=== PATIENT | male | born 1985 | race Caucasian/White ===

== ENCOUNTER 2018-07-05 16:19 | Emergency (ER) | payer MEDICAID ==
[~2018-07-05] VITALS: Ht 175.3 cm; Wt 84.1 kg
[~2018-07-05 16:19] MED LIST: CEPH500C5 PO; CLIN300C85 PO; DEXA4TAB68 PO; EPIN0.3P8 SQ; IBUP-1986 PO; OXYC-658 PO
[2018-07-05 16:38] VITALS: BP 133/82
[2018-07-05] MEDS ORDERED: LIDOcaine 1.5% w/epinephrine 1:200,000 5ml ampul IJ ONE (17:25)
[2018-07-05] MEDS ORDERED: TETanus/Pertussis (Acell)/Diphther VAC/PF (Tdap-Adult) 0.5ml syringe IM ONE (17:25)
[2018-07-05] MEDS ORDERED: CEPH-572 PO (18:19)
[2018-07-05] MEDS ORDERED: SULF1TAB49 PO (18:19)
== END 2018-07-05 18:33 | disposition home or self-care (01) ==
LOC: ER 16:20
DX: L02.214 Cutaneous abscess of groin (principal); L02.416 Cutaneous abscess of left lower limb; L02.414 Cutaneous abscess of left upper limb; J45.909 Unspecified asthma, uncomplicated; F12.90 Cannabis use, unspecified, uncomplicated; F15.90 Other stimulant use, unspecified, uncomplicated; F11.90 Opioid use, unspecified, uncomplicated; Z59.0 Homelessness; Z56.0 Unemployment, unspecified; Z90.89 Acquired absence of other organs; Z98.890 Other specified postprocedural states; Z86.14 Personal history of Methicillin resistant Staphylococcus aureus infection; Z86.19 Personal history of other infectious and parasitic diseases; Z88.8 Allergy status to other drugs, medicaments and biological substances
CPT/HCPCS: 10061; 90471; 90715; 99284; A6449; J3490

== ENCOUNTER 2018-09-16 21:07 | Emergency (ER) | payer MEDICAID ==
[~2018-09-16] VITALS: Ht 175.3 cm; Wt 81.8 kg
[2018-09-16 21:14] VITALS: BP 122/85
[2018-09-16] MEDS ORDERED: LIDOcaine 1.5% w/epinephrine 1:200,000 5ml ampul IJ ONE (23:05)
[2018-09-16] MEDS ORDERED: cephalexin 500mg capsule PO ONE (23:05)
[2018-09-16] MEDS ORDERED: doxycycline hyclate 100mg tablet.DR PO ONE (23:05)
[2018-09-16] MEDS ORDERED: ondansetron 4mg rapidly disintigrating tab PO ONE (23:05)
[2018-09-16] MEDS ORDERED: bacitracin 15gm ointment TP ONE (23:05)
[2018-09-17] MEDS ORDERED: DOXY100C43 PO (00:20)
[2018-09-17] MEDS ORDERED: ibuprofen tablet 400 MG TABLET PO ONE (00:20)
[2018-09-17] MEDS ORDERED: CEPH-572 PO (00:20)
== END 2018-09-17 00:57 | disposition home or self-care (01) ==
LOC: ER 21:07
DX: L02.414 Cutaneous abscess of left upper limb (principal); J45.909 Unspecified asthma, uncomplicated; F12.90 Cannabis use, unspecified, uncomplicated; F15.90 Other stimulant use, unspecified, uncomplicated; F11.90 Opioid use, unspecified, uncomplicated; Z88.8 Allergy status to other drugs, medicaments and biological substances; Z56.0 Unemployment, unspecified; Z59.0 Homelessness; Z86.14 Personal history of Methicillin resistant Staphylococcus aureus infection; Z87.19 Personal history of other diseases of the digestive system; Z90.89 Acquired absence of other organs
CPT/HCPCS: 10061; 99284

== ENCOUNTER 2018-09-20 13:43 | Emergency (ER) | payer MEDICAID ==
[~2018-09-20] VITALS: Ht 175.3 cm; Wt 81.0 kg
[~2018-09-20 13:43] MED LIST changes: +CEPH-572 PO; +DOXY100C43 PO
[2018-09-20 13:55] VITALS: BP 136/82
== END 2018-09-20 15:00 | disposition home or self-care (01) ==
LOC: ER 13:44
DX: L02.414 Cutaneous abscess of left upper limb (principal); J45.909 Unspecified asthma, uncomplicated; Z86.14 Personal history of Methicillin resistant Staphylococcus aureus infection; F12.90 Cannabis use, unspecified, uncomplicated; F15.90 Other stimulant use, unspecified, uncomplicated; F11.90 Opioid use, unspecified, uncomplicated; F17.200 Nicotine dependence, unspecified, uncomplicated; Z88.8 Allergy status to other drugs, medicaments and biological substances; Z79.2 Long term (current) use of antibiotics; Z79.899 Other long term (current) drug therapy; Z59.0 Homelessness; Z56.0 Unemployment, unspecified
CPT/HCPCS: 99283

== ENCOUNTER 2018-12-01 11:30 | Emergency (ER) | payer MEDICAID ==
[~2018-12-01] VITALS: Ht 172.7 cm; Wt 81.8 kg
[~2018-12-01 11:30] MED LIST changes: -CEPH-572 PO; -CEPH500C5 PO; -DOXY100C43 PO
[2018-12-01 11:44] VITALS: BP 125/86
[2018-12-01] MEDS ORDERED: LIDOcaine 1.5% w/epinephrine 1:200,000 5ml ampul IJ ONE (13:05)
[2018-12-01] MEDS ORDERED: TETanus/Pertussis (Acell)/Diphther VAC/PF (Tdap-Adult) 0.5ml syringe IM ONE (13:05)
[2018-12-01] MEDS ORDERED: LIDOcaine 1% w/epiNEPHrine 1:200,000 30ml vial IJ ONE (13:10)
[2018-12-01] MEDS ORDERED: DOXY100C43 PO (13:40)
== END 2018-12-01 13:53 | disposition home or self-care (01) ==
LOC: ER 11:30
DX: L02.416 Cutaneous abscess of left lower limb (principal); L02.211 Cutaneous abscess of abdominal wall; L02.413 Cutaneous abscess of right upper limb; F19.10 Other psychoactive substance abuse, uncomplicated; J45.909 Unspecified asthma, uncomplicated; F12.90 Cannabis use, unspecified, uncomplicated; F15.90 Other stimulant use, unspecified, uncomplicated; F11.90 Opioid use, unspecified, uncomplicated; Z98.890 Other specified postprocedural states; Z90.89 Acquired absence of other organs; Z59.0 Homelessness; Z56.0 Unemployment, unspecified; Z86.14 Personal history of Methicillin resistant Staphylococcus aureus infection; Z79.899 Other long term (current) drug therapy; Z88.8 Allergy status to other drugs, medicaments and biological substances
CPT/HCPCS: 10061; 90471; 90715; 99284; J3490; 10060

== ENCOUNTER 2019-04-16 08:47 | Emergency (ER) | payer MEDICAID ==
[~2019-04-16] VITALS: Ht 175.3 cm; Wt 91.3 kg
[~2019-04-16 08:47] MED LIST changes: +CLIN-96 PO; -CLIN300C85 PO
[2019-04-16] MEDS ORDERED: LIDOcaine 1% w/epiNEPHrine 1:200,000 30ml vial IM ONE (09:40)
[2019-04-16] MEDS ORDERED: CLINDAmcin 900mg/NS 50ml IVPB 50 ML IV ONE (09:40)
[2019-04-16] MEDS ORDERED: LIDOcaine Viscous 15ml cup MM ONE (09:40)
[2019-04-16] MEDS ORDERED: iohexol 300mg/ml 100ml inj. ONE (10:04)
--- NOTE | 2019-04-16 13:30 | NUR ---
PICC LINE NURSE HERE TO START IN IV
[2019-04-16] MEDS ORDERED: morphine 4 MG/ML inj SYRINge IV ONE (15:20)
[2019-04-16] MEDS ORDERED: CLIN-96 PO (16:05)
[2019-04-16] MEDS ORDERED: ACET-3068 PO (16:05)
[2019-04-16 16:26] VITALS: BP 139/95
== END 2019-04-16 16:33 | disposition home or self-care (01) ==
LOC: ER 08:47
DX: K04.7 Periapical abscess without sinus (principal); J45.909 Unspecified asthma, uncomplicated; F12.90 Cannabis use, unspecified, uncomplicated; F15.90 Other stimulant use, unspecified, uncomplicated; F11.90 Opioid use, unspecified, uncomplicated; F17.200 Nicotine dependence, unspecified, uncomplicated; Z59.0 Homelessness; Z56.0 Unemployment, unspecified; Z90.89 Acquired absence of other organs; Z86.14 Personal history of Methicillin resistant Staphylococcus aureus infection; Z88.8 Allergy status to other drugs, medicaments and biological substances; Z79.899 Other long term (current) drug therapy
CPT/HCPCS: 41800; 70487; 96365; 96375; 99284; J2270; J3490; Q9967

== ENCOUNTER 2019-04-17 19:27 | Emergency (ER) | payer MEDICAID ==
[~2019-04-17] VITALS: Ht 175.3 cm; Wt 95.5 kg
[~2019-04-17 19:27] MED LIST changes: +ACET-3068 PO
[2019-04-17 21:20] VITALS: BP 138/86
== END 2019-04-17 21:22 | disposition home or self-care (01) ==
LOC: ER 19:27
DX: K04.7 Periapical abscess without sinus (principal); J45.909 Unspecified asthma, uncomplicated; F12.90 Cannabis use, unspecified, uncomplicated; F15.90 Other stimulant use, unspecified, uncomplicated; F11.90 Opioid use, unspecified, uncomplicated; Z86.14 Personal history of Methicillin resistant Staphylococcus aureus infection; Z59.0 Homelessness; Z56.0 Unemployment, unspecified; Z88.8 Allergy status to other drugs, medicaments and biological substances; Z79.899 Other long term (current) drug therapy
CPT/HCPCS: 99283

== ENCOUNTER 2019-07-01 17:13 | Emergency (ER) | payer MEDICAID ==
[~2019-07-01] VITALS: Ht 175.3 cm; Wt 81.8 kg
[~2019-07-01 17:13] MED LIST changes: -ACET-3068 PO
[2019-07-01 17:24] VITALS: BP 121/75
[2019-07-01] MEDS ORDERED: LIDOcaine 1% w/epiNEPHrine 1:200,000 30ml vial IM ONE (17:25)
[2019-07-01] MEDS ORDERED: CEPH-572 PO (17:30)
[2019-07-01] MEDS ORDERED: SULF1TAB48 PO (17:30)
--- NOTE | 2019-07-01 18:02 | NUR ---
Priya performing I&D of abcess. Swab collected for culture.
== END 2019-07-01 18:16 | disposition home or self-care (01) ==
LOC: ER 17:13
DX: L02.31 Cutaneous abscess of buttock (principal); J45.909 Unspecified asthma, uncomplicated; F12.90 Cannabis use, unspecified, uncomplicated; F15.90 Other stimulant use, unspecified, uncomplicated; F11.90 Opioid use, unspecified, uncomplicated; Z86.14 Personal history of Methicillin resistant Staphylococcus aureus infection; Z86.19 Personal history of other infectious and parasitic diseases; Z90.89 Acquired absence of other organs; Z98.890 Other specified postprocedural states; Z56.0 Unemployment, unspecified; Z59.0 Homelessness; Z88.8 Allergy status to other drugs, medicaments and biological substances; Z79.899 Other long term (current) drug therapy
CPT/HCPCS: 10060; 87070; 87077; 87186; 99283

== ENCOUNTER 2019-12-02 17:47 | Emergency (ER) | payer MEDICAID ==
[~2019-12-02] VITALS: Ht 172.7 cm; Wt 97.7 kg
[~2019-12-02 17:47] MED LIST changes: +CLIN-90 PO; -CLIN-96 PO; +LIDOcaine 1% W/epiNEPHrine 1:100,000 20ml vial ONE
[2019-12-02] MEDS ORDERED: clindamycin 600mg/D5W 50ml 50 ML IV STA (19:17)
[2019-12-02] MEDS ORDERED: normal saline 1000ML IV soln IV ONE (19:20)
--- NOTE | 2019-12-02 20:20 | NUR ---
CINDY De La Rosa made aware patient is difficult IV start, unsuccessful IV attempts by 2 RN and patient is refusing further IV attempts. Per CINDY okay to stop further attempts, aware only 1 blood culture has been drawn, orders received.
[2019-12-02] MEDS ORDERED: clindamycin 150mg capsule PO ONE (20:30)
[2019-12-02 20:33] LABS: BASOPHILS # (AUTO) 0.1 X10'3 (0-0.2); MEAN CORPUSCULAR HGB CONC 34.8 g/dL (33.0-36.5); MEAN PLATELET VOLUME 8.2 FL (7.4-10.4); RED CELL DISTRIBUTION WIDTH 13.6 % (11.5-14.5)
[2019-12-02 20:35] LABS: BASOPHILS % (AUTO) 0.7 % (0-1); EOSINOPHILS # (AUTO) 0.6 X10'3 (0-0.9); EOSINOPHILS % (AUTO) 5.6 % (0-6); HEMATOCRIT 42.5 % (42.0-52.0); HEMOGLOBIN 14.8 g/dl (14.0-17.9); LYMPHOCYTES # (AUTO) 1.8 X10'3 (1.1-4.8); LYMPHOCYTES % (AUTO) 16.9 % (21-51); MEAN CORPUSCULAR HEMOGLOBIN 29.8 PG (27.0-31.0); MEAN CORPUSCULAR VOLUME 85.5 FL (78-98); MONOCYTES % (AUTO) 9.1 % (2-12); NEUTROPHILS # (AUTO) 7.1 X10'3 (1.8-7.7); NEUTROPHILS % (AUTO) 67.7 % (42-75); PLATELET COUNT 277 X10'3 (140-440); RED BLOOD COUNT 4.97 X10'6 (4.70-6.10); WHITE BLOOD COUNT 10.5 X10'3 (4.5-11.0)
[2019-12-02 20:36] LABS: ALANINE AMINOTRANSFERASE 84 U/L (12-78); ALBUMIN 3.4 G/DL (3.4-5.0); ALBUMIN/GLOBULIN RATIO 0.6 (1.1-1.5); ALKALINE PHOSPHATASE 164 IU/L (46-116); ANION GAP 7 (8-16); ASPARTATE AMINO TRANSFERASE 50 U/L (10-37); BILIRUBIN,TOTAL 0.5 MG/DL (0.1-1.0); BLOOD UREA NITROGEN 12 MG/DL (7-18); BUN/CREATININE RATIO 14.1 (5.4-32.0); CALCIUM 8.9 MG/DL (8.5-10.1); CHLORIDE 103 MMOL/L (99-107); CREATININE 0.85 MG/DL (0.60-1.10); GLUCOSE 103 MG/DL (70-104); SODIUM 137 MMOL/L (135-145); TOTAL PROTEIN 8.7 G/DL (6.4-8.2); eGFR > 90 ML/MIN
[2019-12-02 20:37] LABS: POTASSIUM 4.7 MMOL/L (3.5-5.1)
[2019-12-02] MEDS ORDERED: CEPH250T PO (21:25)
[2019-12-02] MEDS ORDERED: BACDS PO (21:25)
[2019-12-02] MEDS ORDERED: HYDROcodone/acetaminophen 5mg/325mg tablet PO ONE (21:40)
[2019-12-02 21:52] VITALS: BP 139/82
== END 2019-12-02 21:54 | disposition home or self-care (01) ==
LOC: ER 17:49
DX: L02.512 Cutaneous abscess of left hand (principal); J45.909 Unspecified asthma, uncomplicated; F12.90 Cannabis use, unspecified, uncomplicated; F15.90 Other stimulant use, unspecified, uncomplicated; F11.90 Opioid use, unspecified, uncomplicated; Z59.0 Homelessness; Z56.0 Unemployment, unspecified; Z86.14 Personal history of Methicillin resistant Staphylococcus aureus infection; Z90.89 Acquired absence of other organs; Z98.890 Other specified postprocedural states; Z88.1 Allergy status to other antibiotic agents
CPT/HCPCS: 20610; 36415; 73140; 80053; 83605; 84145; 85025; 87040; 87070; 87077; 87186; 99284

== ENCOUNTER 2020-01-21 13:57 | Emergency (ER) | payer MEDICAID ==
[~2020-01-21] VITALS: Ht 175.3 cm; Wt 110.0 kg
[~2020-01-21 13:57] MED LIST changes: -LIDOcaine 1% W/epiNEPHrine 1:100,000 20ml vial ONE
[2020-01-21] MEDS ORDERED: CEPH500C5 PO (15:38)
[2020-01-21] MEDS ORDERED: SULF1TAB49 PO (15:38)
== END 2020-01-21 17:16 | disposition home or self-care (01) ==
LOC: ER 13:58
DX: L02.413 Cutaneous abscess of right upper limb (principal); J45.909 Unspecified asthma, uncomplicated; F12.90 Cannabis use, unspecified, uncomplicated; F15.90 Other stimulant use, unspecified, uncomplicated; F11.90 Opioid use, unspecified, uncomplicated; F17.200 Nicotine dependence, unspecified, uncomplicated; Z86.19 Personal history of other infectious and parasitic diseases; Z86.14 Personal history of Methicillin resistant Staphylococcus aureus infection; Z59.0 Homelessness; Z56.0 Unemployment, unspecified; Z79.2 Long term (current) use of antibiotics; Z79.899 Other long term (current) drug therapy
CPT/HCPCS: 10060; 99283

== ENCOUNTER 2020-08-14 15:43 | Emergency (ER) | payer MEDICAID ==
[~2020-08-14] VITALS: Ht 175.3 cm; Wt 95.5 kg
[~2020-08-14 15:43] MED LIST changes: -CLIN-90 PO; +CLIN-97 PO
[2020-08-14 15:55] VITALS: BP 141/85
[2020-08-14] MEDS ORDERED: BACDS PO (16:41)
[2020-08-14] MEDS ORDERED: CEPH250T PO (16:41)
[2020-08-14] MEDS ORDERED: IBUP-1984 PO (16:54)
== END 2020-08-14 17:14 | disposition home or self-care (01) ==
LOC: ER 15:44
DX: L02.413 Cutaneous abscess of right upper limb (principal); L02.414 Cutaneous abscess of left upper limb; J45.909 Unspecified asthma, uncomplicated; F12.90 Cannabis use, unspecified, uncomplicated; F15.90 Other stimulant use, unspecified, uncomplicated; F11.90 Opioid use, unspecified, uncomplicated; Z86.19 Personal history of other infectious and parasitic diseases; Z86.14 Personal history of Methicillin resistant Staphylococcus aureus infection; Z90.89 Acquired absence of other organs; Z98.890 Other specified postprocedural states; Z56.0 Unemployment, unspecified; Z59.0 Homelessness; Z88.8 Allergy status to other drugs, medicaments and biological substances; Z79.2 Long term (current) use of antibiotics; Z79.899 Other long term (current) drug therapy
CPT/HCPCS: 10061; 99284

== ENCOUNTER 2020-08-20 01:29 | Inpatient (IN) | payer MEDICAID ==
[~2020-08-20] VITALS: Ht 175.3 cm; Wt 95.5 kg
[2020-08-20] VITALS (15 sets, daily range): BP systolic 104–140; BP diastolic 55–89
[~2020-08-20 01:29] MED LIST changes: +BACDS PO; +CEPH250T PO; +IBUP-1984 PO
[2020-08-20] MEDS ORDERED: METH-603 PO (02:09)
--- NOTE | 2020-08-20 02:10 | NUR ---
PT METHADONE INFO: [facility] [address] [facility] [phone] AMT: 99 MG PER THE BOTTLE
[2020-08-20 02:35] LABS: CLARITY,URINE CLEAR (Clear); COLOR,URINE YELLOW (Yellow); GLUCOSE, URINE NEGATIVE (Neg); KETONES,URINE NEGATIVE (Neg); LEUKOCYTE ESTERASE ,URINE NEGATIVE (Neg); NITRITES, URINE NEGATIVE (Neg); OCCULT BLOOD,URINE NEGATIVE (Neg); PH,URINE 5.5 (4.8-8.0); PROTEIN,URINE TRACE mg/dl (Neg)
[2020-08-20 02:37] LABS: UA COLLECTION TYPE URINAL
[2020-08-20 02:45] LABS: SQUAMOUS EPITHELIAL CELL,UR MODERATE /LPF (FEW)
[2020-08-20 02:46] LABS: TRANSITIONAL EPI CELLS,URINE FEW /HPF
[2020-08-20 02:47] LABS: MUCUS STRANDS FEW /LPF (Neg); RBC,URINE 0-2 /HPF (0-2)
[2020-08-20 02:48] LABS: HYALINE CASTS 0-3 /LPF (NEGATIVE)
[2020-08-20 02:50] LABS: BACTERIA,URINE 2+ /HPF (Neg)
[2020-08-20] MEDS ORDERED: piperacillin/tazo 3.375gm/50ml 50 ML IV ONE (03:00)
[2020-08-20] MEDS ORDERED: normal saline 1000ml 1,000 ML IV ONE (03:00)
[2020-08-20 03:01] LABS: BASOPHILS % (AUTO) 0.5 % (0-1); EOSINOPHILS # (AUTO) 0.7 X10'3 (0-0.9); EOSINOPHILS % (AUTO) 7.5 % (0-6); HEMATOCRIT 29.1 % (42.0-52.0); HEMOGLOBIN 9.5 g/dl (14.0-17.9); LYMPHOCYTES # (AUTO) 2.1 X10'3 (1.1-4.8); LYMPHOCYTES % (AUTO) 22.5 % (21-51); MEAN CORPUSCULAR HGB CONC 32.7 g/dL (33.0-36.5); MEAN CORPUSCULAR VOLUME 76.4 FL (78-98); MONOCYTES # (AUTO) 0.9 X10'3 (0-0.9); MONOCYTES % (AUTO) 9.2 % (2-12); NEUTROPHILS # (AUTO) 5.7 X10'3 (1.8-7.7); NEUTROPHILS % (AUTO) 60.3 % (42-75); PLATELET COUNT 309 X10'3 (140-440); RED BLOOD COUNT 3.81 X10'6 (4.70-6.10); RED CELL DISTRIBUTION WIDTH 16.2 % (11.5-14.5); WHITE BLOOD COUNT 9.4 X10'3 (4.5-11.0)
[2020-08-20] MEDS ORDERED: iohexol 300mg/ml 100ml inj. ONE (03:12)
[2020-08-20 03:15] LABS: ALANINE AMINOTRANSFERASE 33 U/L (12-78); ALBUMIN 2.1 G/DL (3.4-5.0); ALBUMIN/GLOBULIN RATIO 0.3 (1.1-1.5); ALKALINE PHOSPHATASE 127 IU/L (46-116); ANION GAP 2 (8-16); ASPARTATE AMINO TRANSFERASE 35 U/L (10-37); BILIRUBIN,TOTAL 0.3 MG/DL (0.1-1.0); BLOOD UREA NITROGEN 14 MG/DL (7-18); BUN/CREATININE RATIO 14.1 (5.4-32.0); CALCIUM 8.2 MG/DL (8.5-10.1); CHLORIDE 104 MMOL/L (99-107); CREATININE 0.99 MG/DL (0.60-1.10); POTASSIUM 3.5 MMOL/L (3.5-5.1); SODIUM 137 MMOL/L (135-145); TOTAL CARBON DIOXIDE 31.4 MMOL/L (24-32); TOTAL PROTEIN 8.6 G/DL (6.4-8.2); eGFR 87 ML/MIN
[2020-08-20 03:16] LABS: GLUCOSE 117 MG/DL (70-104)
[2020-08-20] MEDS: SODIUM CHLORIDE IV SCH ×2 (04:12→05:52)
[2020-08-20] MEDS: VANCOMYCIN IV SCH ×2 (04:12→05:52)
[2020-08-20] MEDS ORDERED: mag hydrox/Alum hydrox/simeth 30ml oral suspension PO PRN (04:25)
[2020-08-20] MEDS ORDERED: HYDROcodone/acetaminophen 5mg/325mg tablet PO PRN (04:25)
[2020-08-20] MEDS ORDERED: acetaminophen 325mg tablet PO PRN ×2 (04:25)
[2020-08-20] MEDS ORDERED: magnesium hydroxide 30ml (MOM) UD suspension PO PRN (04:25)
[2020-08-20] MEDS ORDERED: ondansetron/PF 4mg/2ml inj IV PRN ×2 (04:25→18:15)
[2020-08-20] MEDS ORDERED: morphine 2 MG/ML inj. syringe IV PRN ×2 (04:25→18:15)
--- NOTE | 2020-08-20 05:00 | NUR ---
Patient in room [facility]. I have received report from Cheryl SOUZA and had the opportunity to ask questions and assume patient care.
[2020-08-20 05:02] LABS: CREATINE KINASE 54 U/L (39-308)
[2020-08-20] MEDS: normal saline 1000ml 1,000 ML IV SCH ×2 (05:59→12:44)
--- NOTE | 2020-08-20 06:30 | NUR ---
Patient in room [facility]. I have received report from Jocelyne SOUZA and had the opportunity to ask questions and assume patient care.
--- NOTE | 2020-08-20 06:42 | NUR ---
Problems reprioritized. Patient report given, questions answered & plan of care reviewed with Fannie SOUZA.
--- NOTE | 2020-08-20 07:42 | NUR ---
Lo with pharmacy is verifying patients Methadone dosage and said to hold off till she calls me back and lets me know the dose is correct from the clinic that provides his medication.
[2020-08-20] MEDS ORDERED: vancomycin/NS 1 GM ADD-VANTAGE 250 ML IV SCH (08:00)
[2020-08-20] MEDS ORDERED: methadone 10mg tablet PO SCH ×2 (08:00→11:25)
[2020-08-20] MEDS ORDERED: METH10SO PO (08:13)
--- NOTE | 2020-08-20 09:40 | NUR ---
yamilet with wound care advised patient has multiple wounds all over his body.
--- NOTE | 2020-08-20 09:42 | NUR ---
PAGER ID: [phone] MESSAGE: Fannie-Surg [phone] Re: Keith Silva please call re: Methadone
--- NOTE | 2020-08-20 10:33 | NUR ---
PAGER ID: [phone] MESSAGE: Fannie-Surg [phone] Re: Keith Silva please call re: methadone orders Addendum: 08/20/20 at 1035 by Fannie Sanchez RN Disregard duplicate note
--- NOTE | 2020-08-20 10:34 | NUR ---
PAGER ID: [phone] MESSAGE: Fannie-Surg [id number] Re: Keith Silva please call re: methadone orders
--- NOTE | 2020-08-20 11:35 | NUR ---
Left message for Michael navarro girlfriend at [phone] to give me a call back
[2020-08-20] MEDS: piperacillin/tazo 4.5gm/100ml 100 ML IV SCH ×2 (12:36→20:10)
--- NOTE | 2020-08-20 13:19 | NUR ---
Spoke to Dr Squires regarding patient still has not received Methadone today because his girlfriend has not returned my phone call regarding bringing in his home does. Dr Squires also aware that patient will be going to surgery today with Dr Rangel. Per Dr Squires don't give dose now have it scheduled for tonight.
[2020-08-20] MEDS ORDERED: ondansetron 4mg rapidly disintigrating tab PO PRN (16:30)
[2020-08-20] MEDS: VANCOmycin 1250MG/NS 250ml Bag 250 ML IV SCH (16:59)
--- NOTE | 2020-08-20 18:00 | NUR ---
Problems reprioritized. Patient report given, questions answered & plan of care reviewed with Jocelyne SOUZA.
[2020-08-20] MEDS ORDERED: bacitracin 15gm ointment TP ONE (18:06)
--- NOTE | 2020-08-20 18:07 | NUR ---
Called Report to Carlos SOUZA in Recovery. BG [phone]
[2020-08-20] MEDS ORDERED: morphine 4 MG/ML inj SYRINge IV PRN (18:15)
[2020-08-20] MEDS ORDERED: proCHLORperazine 10 MG/2 ml inj IV PRN (18:15)
[2020-08-20] MEDS ORDERED: meperidine/PF 25mg/ml syringe IV PRN ×2 (18:15)
[2020-08-20] MEDS ORDERED: ringers solution, lacted 1,000 ML IV SCH (18:15)
[2020-08-20] MEDS ORDERED: midazolam 2 mg/2 ml injection ONE (18:21)
[2020-08-20] MEDS ORDERED: fentaNYL/PF 50MCG/1 ML 2ML syringe ONE ×2 (18:21→18:56)
[2020-08-20] MEDS ORDERED: LIDOcaine 2% (20mg/ml) 5ml vial ONE (18:24)
[2020-08-20] MEDS ORDERED: rocuronium 10mg/ml inj IV ONE (18:24)
[2020-08-20] MEDS ORDERED: propofol inj 20 ML IV ONE (18:24)
[2020-08-20] MEDS ORDERED: sevoflurane 250ml liquid IH ONE (18:25)
--- NOTE | 2020-08-20 18:31 | NUR ---
I have received report from Fannie SOUZA and had the opportunity to ask questions and assume patient care. pt in surgury At 1800
[2020-08-20] MEDS ORDERED: ondansetron/PF 4mg/2ml inj ONE (19:03)
[2020-08-20] MEDS ORDERED: glycopyrrolate 0.2mg/ml inj ONE (19:03)
[2020-08-20] MEDS ORDERED: neostigmine methylsulfate 1 MG/ML 10ml vial ONE (19:03)
--- NOTE | 2020-08-20 19:18 | NUR ---
Received from OR via SURGICAL BED , accompanied by Anesthesiologist DAMIEN and report given by Anesthesiolgist. PATIENT WITH 20G PIV IN LEFT UE RUNNING LR AT 100. MEDICATED FOR PAIN UPON ARRIVAL. WOUND VAC TO LEFT AC AT 125 MMHG. Addendum: 08/20/20 at 194 by Carlos Clarke RN, RN Amended: Links added.
[2020-08-20] MEDS: meperidine/PF 25mg/ml syringe IV PRN ×2 (19:33→19:43)
--- NOTE | 2020-08-20 19:35 | NUR ---
Patient in room [facility]. I have received report from Carlos SOUZA and had the opportunity to ask questions and assume patient care.
--- NOTE | 2020-08-20 19:58 | NUR ---
ALL CRITERIA FOR TRANSFER TO THE FLOOR HAS BEEN ACHIEVED. REPORT GIVEN AND ALL QUESTIONS ANSWERED, VSS. BED LOW 2 RAILS UP, CALL LIGHT PRESNET AND PATIENT HOOKED UP TO ALL LINES AND VSS. PATIENTS RN PRESENT TO ACCEPT CARE. REPORT GIVEN TO RN ARNALDO. SHE IS AWARE PATIENT HAS ARRIVED. GENERATION TECHNOLOGISTHARLEY NICHOLS TO ASSESS AND SET UP VS MACHINE. PATIENT RESTING COMFORTABLY AT THIS TIME. VSS PRIOR TO LEAVING PACU. CARE TURNED OVER TO RN. Addendum: 08/20/20 at 2002 by Carlos Trevizo - HARLEY RN Amended: Links added.
[2020-08-20] MEDS: lactobacillus rhamnosus 10,000 MMU CELLS/CAPSULE PO SCH (20:10)
[2020-08-20] MEDS: methadone 10mg tablet PO SCH (20:13)
[2020-08-21] VITALS: BP 125/64
--- NOTE | 2020-08-21 03:37 | NUR ---
I was unable to dart pt. message sent to Star RN to star pt during the day
[2020-08-21] MEDS: VANCOmycin 1250MG/NS 250ml Bag 250 ML IV SCH ×2 (04:13→17:45)
[2020-08-21] MEDS: normal saline 1000ml 1,000 ML IV SCH ×3 (04:14→19:48)
[2020-08-21] MEDS: piperacillin/tazo 4.5gm/100ml 100 ML IV SCH ×3 (05:50→19:46)
--- NOTE | 2020-08-21 06:06 | NUR ---
lab unable to draw from pt. they will try again later
--- NOTE | 2020-08-21 06:39 | NUR ---
Problems reprioritized. Patient report given, questions answered & plan of care reviewed with Heather SOUZA.
--- NOTE | 2020-08-21 07:16 | NUR ---
PAGER ID: [phone] MESSAGE: AUDREY QUEEN [id number] How long does this pt. need antibiotic? VERY difficult stick. Lab unable to draw labs this AM. PICC placement for draws and ATB? or do you just want us to place extended for draws? Heather [phone]
[2020-08-21 07:26] VITALS: BP 120/67
[2020-08-21] MEDS: lactobacillus rhamnosus 10,000 MMU CELLS/CAPSULE PO SCH ×2 (09:22→19:48)
--- NOTE | 2020-08-21 10:08 | NUR ---
paged star nurse
[2020-08-21 11:00] VITALS: BP 148/63
--- NOTE | 2020-08-21 11:00 | NUR ---
PAGER ID: [phone] MESSAGE: AUDREY QUEEN 352A How long does this pt. need antibiotic? VERY difficult stick. Lab unable to draw labs this AM. PICC placement for draws and ATB? or do you just want us to place extended for draws? Heather [phone]
--- NOTE | 2020-08-21 11:45 | NUR ---
patient not very cooperative with answering admission questions, obtained most medical history from previous medical records.
--- NOTE | 2020-08-21 11:52 | NUR ---
PICC nurse replied. She has two pt.s to care for but then is on her way to place extended IV for draws.
[2020-08-21] MEDS: morphine 2 MG/ML inj. syringe IV PRN ×3 (13:27→22:47)
--- NOTE | 2020-08-21 13:27 | NUR ---
PICC RN PLACED EXTENDED TO NAOMI. PRIMARY RN ABLE TO DRAW LABS CMP AND BMP. LAB NOTIFIED.
--- NOTE | 2020-08-21 13:33 | NUR ---
BLOOD SAMPLES SENT TO LAB VIA [facility] RN STUDENT.
[2020-08-21 13:42] LABS: BASOPHILS # (AUTO) 0.1 X10'3 (0-0.2); BASOPHILS % (AUTO) 0.9 % (0-1); EOSINOPHILS # (AUTO) 0.3 X10'3 (0-0.9); EOSINOPHILS % (AUTO) 4.1 % (0-6); HEMATOCRIT 29.2 % (42.0-52.0); HEMOGLOBIN 9.5 g/dl (14.0-17.9); LYMPHOCYTES # (AUTO) 1.6 X10'3 (1.1-4.8); LYMPHOCYTES % (AUTO) 20.8 % (21-51); MEAN CORPUSCULAR HEMOGLOBIN 24.7 PG (27.0-31.0); MEAN CORPUSCULAR HGB CONC 32.4 g/dL (33.0-36.5); MEAN PLATELET VOLUME 8.3 FL (7.4-10.4); MONOCYTES # (AUTO) 0.6 X10'3 (0-0.9); MONOCYTES % (AUTO) 7.1 % (2-12); NEUTROPHILS # (AUTO) 5.3 X10'3 (1.8-7.7); NEUTROPHILS % (AUTO) 67.1 % (42-75); PLATELET COUNT 251 X10'3 (140-440); RED BLOOD COUNT 3.85 X10'6 (4.70-6.10); WHITE BLOOD COUNT 7.9 X10'3 (4.5-11.0)
[2020-08-21 13:54] LABS: ALBUMIN 1.9 G/DL (3.4-5.0); ANION GAP 1 (8-16); BLOOD UREA NITROGEN 7 MG/DL (7-18); BUN/CREATININE RATIO 8.5 (5.4-32.0); CALCIUM 7.9 MG/DL (8.5-10.1); CHLORIDE 106 MMOL/L (99-107); CREATININE 0.82 MG/DL (0.60-1.10); POTASSIUM 3.6 MMOL/L (3.5-5.1); SODIUM 137 MMOL/L (135-145); TOTAL CARBON DIOXIDE 30.5 MMOL/L (24-32); eGFR > 90 ML/MIN
[2020-08-21 13:56] LABS: GLUCOSE 108 MG/DL (70-104)
--- NOTE | 2020-08-21 16:45 | NUR ---
Pt. states he is fed up with being here he wants to leave. Educated on the importance of getting his IV antibiotics. Pt. wants his methadone right now and it is not due until a later time. Will not accept norco as a pain medication stating "that won't do anything with my tolerance". Did not really want morphine, but stated severe pain and was willing to try morphine but stated that "it probably wouldn't work either".
--- NOTE | 2020-08-21 17:50 | NUR ---
Pt. restless concerning methadone. Moving around in bed and lying on NAOMI. Pulled extended PIV that was placed today. Bandage applied, no s/sx bleeding noted. Charge made aware. No PICC RN available at this time.
[2020-08-21 18:00] VITALS: BP 129/70
--- NOTE | 2020-08-21 18:30 | NUR ---
Gave report to Prudence HARLEY.
--- NOTE | 2020-08-21 19:19 | NUR ---
Called lab and spoke with Ayse to let them know that pt. is no longer a line draw. Ayse states lab will attempt to draw any further ordered labs.
[2020-08-21] MEDS: methadone 10mg tablet PO SCH (19:48)
--- NOTE | 2020-08-21 19:57 | NUR ---
Called MD for authorization to administer methodone for patient an hour ealier than the sheduled time due to uncontrolled pain.
[2020-08-21] MEDS ORDERED: METHADONE PO SCH (21:00)
[2020-08-22] VITALS: BP 124/61
[2020-08-22] MEDS: normal saline 1000ml 1,000 ML IV SCH ×2 (01:50→16:12)
[2020-08-22] MEDS: HYDROcodone/acetaminophen 10/325mg tab PO PRN ×2 (01:50→13:57)
[2020-08-22] MEDS: piperacillin/tazo 4.5gm/100ml 100 ML IV SCH ×2 (04:04→12:25)
[2020-08-22] MEDS: morphine 2 MG/ML inj. syringe IV PRN ×2 (04:07→10:18)
[2020-08-22] MEDS ORDERED: VANCOMYCIN LEVEL IV ONE ×2 (04:30→19:30)
[2020-08-22 05:00] VITALS: BP 125/67
--- NOTE | 2020-08-22 07:36 | NUR ---
Pharmacist Sean, said to hang 0500 Vanco dose now he is aware having issues with drawing patients blood for labs and patients is being resistant to care. Will page the PICC RN to see if she can put in an extended line so we will be able to draw patients labs. Per Pharmacist he will schedule a vanco trough for tonight.
[2020-08-22] MEDS: lactobacillus rhamnosus 10,000 MMU CELLS/CAPSULE PO SCH ×2 (08:18→20:00)
[2020-08-22] MEDS: VANCOmycin 1250MG/NS 250ml Bag 250 ML IV SCH (08:20)
[2020-08-22 09:03] VITALS: BP 121/72
--- NOTE | 2020-08-22 16:20 | NUR ---
RIGHT UPPER ARM: 39 CM RIGHT LOWER ARM: 33 CM
--- NOTE | 2020-08-22 18:24 | NUR ---
Problems reprioritized. Patient report given, questions answered & plan of care reviewed with PRUDENCE RN.
--- NOTE | 2020-08-22 18:34 | NUR ---
Double Lumen MIDLINE placed in Left Upper Arm (Basilic). 20cm Length, 3cm Out, 36cm Arm Circ. 5 Fr. Ref 46-025, LOT [id number]
--- NOTE | 2020-08-22 18:39 | NUR ---
Patient in room [facility]. I have received report from EDIS SOUZA and had the opportunity to ask questions and assume patient care.
[2020-08-22] MEDS ORDERED: VANCOmycin 1250MG/NS 250ml Bag 250 ML IV SCH (20:00)
[2020-08-22] MEDS: methadone 10mg tablet PO SCH (20:01)
[2020-08-23] VITALS (16 sets, daily range): BP systolic 91–137; BP diastolic 47–90
[2020-08-23] MEDS: morphine 2 MG/ML inj. syringe IV PRN ×2 (00:50→12:00)
[2020-08-23] MEDS: normal saline 1000ml 1,000 ML IV SCH ×4 (02:25→20:56)
[2020-08-23] MEDS: HYDROcodone/acetaminophen 10/325mg tab PO PRN (04:28)
[2020-08-23 05:04] LABS: BASOPHILS # (AUTO) 0.1 X10'3 (0-0.2); BASOPHILS % (AUTO) 0.7 % (0-1); EOSINOPHILS # (AUTO) 0.5 X10'3 (0-0.9); EOSINOPHILS % (AUTO) 5.9 % (0-6); HEMATOCRIT 30.3 % (42.0-52.0); HEMOGLOBIN 9.8 g/dl (14.0-17.9); LYMPHOCYTES # (AUTO) 2.3 X10'3 (1.1-4.8); LYMPHOCYTES % (AUTO) 26.8 % (21-51); MEAN CORPUSCULAR HEMOGLOBIN 24.6 PG (27.0-31.0); MEAN CORPUSCULAR HGB CONC 32.3 g/dL (33.0-36.5); MEAN CORPUSCULAR VOLUME 76.2 FL (78-98); MEAN PLATELET VOLUME 8.5 FL (7.4-10.4); MONOCYTES # (AUTO) 0.8 X10'3 (0-0.9); MONOCYTES % (AUTO) 9.1 % (2-12); NEUTROPHILS # (AUTO) 4.9 X10'3 (1.8-7.7); NEUTROPHILS % (AUTO) 57.5 % (42-75); PLATELET COUNT 298 X10'3 (140-440); RED BLOOD COUNT 3.98 X10'6 (4.70-6.10); RED CELL DISTRIBUTION WIDTH 16.2 % (11.5-14.5); WHITE BLOOD COUNT 8.5 X10'3 (4.5-11.0)
[2020-08-23 05:22] LABS: ANION GAP 2 (8-16); BLOOD UREA NITROGEN 6 MG/DL (7-18); BUN/CREATININE RATIO 7.3 (5.4-32.0); CALCIUM 8.2 MG/DL (8.5-10.1); CHLORIDE 106 MMOL/L (99-107); CREATININE 0.82 MG/DL (0.60-1.10); POTASSIUM 3.4 MMOL/L (3.5-5.1); SODIUM 139 MMOL/L (135-145); TOTAL CARBON DIOXIDE 30.6 MMOL/L (24-32); eGFR > 90 ML/MIN
[2020-08-23 05:23] LABS: GLUCOSE 79 MG/DL (70-104)
[2020-08-23 05:24] LABS: HIV ANTIBODY 1&2 RAPID NON-REACTIVE (Neg)
--- NOTE | 2020-08-23 06:25 | NUR ---
Patient in room [facility]. I have received report from HARLEY Glover and had the opportunity to ask questions and assume patient care.
[2020-08-23] MEDS ORDERED: magnesium Cl slow-release 64mg tablet PO PRN (07:25)
[2020-08-23] MEDS ORDERED: magnesium 4gm in 100ml NS 100 ML IV PRN (07:25)
[2020-08-23] MEDS ORDERED: potassium Cl 20 mEq SR tablet PO PRN (07:25)
[2020-08-23] MEDS ORDERED: potassium CL 10mEq/100ml bag 100 ML IV PRN (07:25)
[2020-08-23] MEDS ORDERED: magnesium 2GM in 50ml NS 50 ML IV PRN (07:25)
[2020-08-23] MEDS: amox tr/potassium clavulanate 875/125mg TAB PO SCH ×2 (07:49→17:20)
[2020-08-23] MEDS: potassium Cl 20 mEq SR tablet PO PRN ×2 (07:49→17:21)
[2020-08-23] MEDS: lactobacillus rhamnosus 10,000 MMU CELLS/CAPSULE PO SCH ×2 (07:49→20:53)
[2020-08-23] MEDS: DOXYCYCLINE 100MG CAPSULE PO SCH ×2 (07:49→17:21)
[2020-08-23] MEDS: K and/or MAG REPLACEMENT MC SCH ×2 (07:49→20:00)
[2020-08-23] MEDS ORDERED: ondansetron/PF 4mg/2ml inj IV PRN (08:55)
[2020-08-23] MEDS ORDERED: morphine 4 MG/ML inj SYRINge IV PRN (08:55)
[2020-08-23] MEDS ORDERED: proCHLORperazine 10 MG/2 ml inj IV PRN (08:55)
[2020-08-23] MEDS ORDERED: morphine 2 MG/ML inj. syringe IV PRN (08:55)
[2020-08-23] MEDS ORDERED: ringers solution, lacted 1,000 ML IV SCH (08:55)
[2020-08-23] MEDS ORDERED: meperidine/PF 25mg/ml syringe IV PRN ×3 (08:55)
--- NOTE | 2020-08-23 08:55 | NUR ---
Report given to SEWER BUILDERYanely
[2020-08-23] MEDS ORDERED: fentaNYL/PF 50MCG/1 ML 2ML syringe ONE (09:21)
[2020-08-23] MEDS ORDERED: midazolam 2 mg/2 ml injection ONE (09:24)
[2020-08-23] MEDS ORDERED: LIDOcaine 2% (20mg/ml) 5ml vial ONE (09:25)
[2020-08-23] MEDS ORDERED: propofol inj 20 ML IV ONE (09:25)
[2020-08-23] MEDS ORDERED: sevoflurane 250ml liquid IH ONE (09:35)
[2020-08-23] MEDS ORDERED: ondansetron/PF 4mg/2ml inj ONE (10:33)
[2020-08-23] MEDS ORDERED: rocuronium 10mg/ml inj IV ONE (10:33)
[2020-08-23] MEDS ORDERED: glycopyrrolate 0.2mg/ml inj ONE (10:33)
[2020-08-23] MEDS ORDERED: neostigmine methylsulfate 1 MG/ML 10ml vial ONE (10:33)
--- NOTE | 2020-08-23 10:50 | NUR ---
Received from OR via SURGICAL BED , accompanied by Anesthesiologist DR QUEZADA and report given by Anesthesiolgist. PT HAS MULTIPLE WOUNDS W/ PACKING AND GAUZE TO ALL EXTREMETIES, TORSO AND BACK. DRSMJ HAVE SANGUENOUS DRAINAGE, WILL DRAIN AND OK TO BE REINFORCED PER OR AND DR. MONTEIRO. PT IV INFUSING, DEMEROL ADMINISTERED ORDERED. PT IS MORE RESTFUL NOW.
--- NOTE | 2020-08-23 11:05 | NUR ---
Report received from PROPAGATORNicci
--- NOTE | 2020-08-23 11:31 | NUR ---
REPORT GIVEN TO KAY RN WHO ASSUMED CARE OF PT. PT ORIENTED TO ROOM AND CALL LIGHT. BED LOCKED, LOW, RAILS UP X 2. CALL LIGHT IN REACH. PT REMAINS COOPERATIVE AND COMFORTABLE, STATES HE IS 'HUNGRY" PT DENIES NAUSEA. WOUNDS FROM SURGERY REMAIN PACKED AND COVERED AND DRSG TO RIGHT ARM HAS SOME VISIBLE SANGUENOUS DRAINAGE PRESENT. NURSE AWARE THAT IT IS OK TO REINFORCE DRSGS PER DR MONTEIRO, PER OR STAFF.
--- NOTE | 2020-08-23 18:15 | NUR ---
Problems reprioritized. Patient report given, questions answered & plan of care reviewed with HARLEY Glover.
--- NOTE | 2020-08-23 18:57 | NUR ---
Patient in room [facility]. I have received report from KAY SOUZA and had the opportunity to ask questions and assume patient care.
[2020-08-23] MEDS: methadone 10mg tablet PO SCH (20:54)
[2020-08-24] VITALS: BP 115/74
[2020-08-24] MEDS: potassium Cl 20 mEq SR tablet PO PRN (00:15)
[2020-08-24] MEDS: HYDROcodone/acetaminophen 10/325mg tab PO PRN ×2 (00:19→04:42)
[2020-08-24 04:00] VITALS: BP 101/51
[2020-08-24] MEDS: normal saline 1000ml 1,000 ML IV SCH ×2 (04:42→14:49)
--- NOTE | 2020-08-24 06:20 | NUR ---
Patient in room [facility]. I have received report from HARLEY Glover and had the opportunity to ask questions and assume patient care.
--- NOTE | 2020-08-24 06:25 | NUR ---
Problems reprioritized. Patient report given, questions answered & plan of care reviewed with KAY RN.
[2020-08-24 07:00] VITALS: BP 103/55
[2020-08-24] MEDS: DOXYCYCLINE 100MG CAPSULE PO SCH ×2 (07:55→17:28)
[2020-08-24] MEDS: amox tr/potassium clavulanate 875/125mg TAB PO SCH ×2 (07:55→17:28)
[2020-08-24] MEDS: lactobacillus rhamnosus 10,000 MMU CELLS/CAPSULE PO SCH ×2 (07:55→20:46)
[2020-08-24 09:50] LABS: BASOPHILS # (AUTO) 0.1 X10'3 (0-0.2); BASOPHILS % (AUTO) 0.8 % (0-1); EOSINOPHILS # (AUTO) 0.5 X10'3 (0-0.9); EOSINOPHILS % (AUTO) 5.8 % (0-6); HEMATOCRIT 33.9 % (42.0-52.0); LYMPHOCYTES # (AUTO) 2.1 X10'3 (1.1-4.8); LYMPHOCYTES % (AUTO) 24.1 % (21-51); MEAN CORPUSCULAR HGB CONC 32.5 g/dL (33.0-36.5); MEAN CORPUSCULAR VOLUME 76.8 FL (78-98); MEAN PLATELET VOLUME 8.5 FL (7.4-10.4); MONOCYTES # (AUTO) 0.8 X10'3 (0-0.9); MONOCYTES % (AUTO) 8.8 % (2-12); NEUTROPHILS # (AUTO) 5.3 X10'3 (1.8-7.7); NEUTROPHILS % (AUTO) 60.5 % (42-75); PLATELET COUNT 332 X10'3 (140-440); RED BLOOD COUNT 4.42 X10'6 (4.70-6.10); RED CELL DISTRIBUTION WIDTH 16.3 % (11.5-14.5); WHITE BLOOD COUNT 8.8 X10'3 (4.5-11.0)
[2020-08-24 10:03] LABS: ALBUMIN 2.1 G/DL (3.4-5.0); ANION GAP 3 (8-16); BLOOD UREA NITROGEN 6 MG/DL (7-18); BUN/CREATININE RATIO 6.9 (5.4-32.0); CALCIUM 8.4 MG/DL (8.5-10.1); CHLORIDE 104 MMOL/L (99-107); CREATININE 0.87 MG/DL (0.60-1.10); GLUCOSE 137 MG/DL (70-104); MAGNESIUM 1.9 MG/DL (1.5-2.4); POTASSIUM 4.1 MMOL/L (3.5-5.1); SODIUM 135 MMOL/L (135-145); TOTAL CARBON DIOXIDE 28.3 MMOL/L (24-32); eGFR > 90 ML/MIN
[2020-08-24 10:09] LABS: % IRON SATURATION 16 % (11-46); IRON 36 UG/DL (53-167); TOTAL IRON BINDING CAPACITY 224 UG/DL (259-388)
[2020-08-24] MEDS: K and/or MAG REPLACEMENT MC SCH ×2 (10:11→20:00)
[2020-08-24 11:00] VITALS: BP 110/53
[2020-08-24] MEDS ORDERED: iron sucrose complex injection 200 MG in normal saline 100ml IV soln 100 ML IV SCH (16:00)
[2020-08-24] MEDS: iron sucrose complex injection 200 MG in normal saline 100ml IV soln 90 ML IV SCH (16:51)
--- NOTE | 2020-08-24 18:15 | NUR ---
Problems reprioritized. Patient report given, questions answered & plan of care reviewed with Dominique RN.
[2020-08-24 19:55] VITALS: BP 119/62
[2020-08-24] MEDS: methadone 10mg tablet PO SCH (20:47)
[2020-08-25 00:01] VITALS: BP 113/76
[2020-08-25] MEDS: normal saline 1000ml 1,000 ML IV SCH ×3 (00:27→20:14)
[2020-08-25] MEDS: HYDROcodone/acetaminophen 10/325mg tab PO PRN ×4 (02:48→20:14)
[2020-08-25 05:26] LABS: BASOPHILS % (AUTO) 0.5 % (0-1); EOSINOPHILS # (AUTO) 0.5 X10'3 (0-0.9); EOSINOPHILS % (AUTO) 6.5 % (0-6); HEMATOCRIT 33.3 % (42.0-52.0); HEMOGLOBIN 10.8 g/dl (14.0-17.9); LYMPHOCYTES # (AUTO) 2.3 X10'3 (1.1-4.8); LYMPHOCYTES % (AUTO) 30.8 % (21-51); MEAN CORPUSCULAR HEMOGLOBIN 24.8 PG (27.0-31.0); MEAN CORPUSCULAR HGB CONC 32.4 g/dL (33.0-36.5); MEAN CORPUSCULAR VOLUME 76.7 FL (78-98); MEAN PLATELET VOLUME 8.3 FL (7.4-10.4); MONOCYTES # (AUTO) 0.8 X10'3 (0-0.9); MONOCYTES % (AUTO) 10.4 % (2-12); NEUTROPHILS # (AUTO) 3.8 X10'3 (1.8-7.7); NEUTROPHILS % (AUTO) 51.8 % (42-75); PLATELET COUNT 298 X10'3 (140-440); RED BLOOD COUNT 4.33 X10'6 (4.70-6.10); RED CELL DISTRIBUTION WIDTH 16.4 % (11.5-14.5); WHITE BLOOD COUNT 7.4 X10'3 (4.5-11.0)
[2020-08-25 05:33] LABS: ALBUMIN 2.1 G/DL (3.4-5.0); ANION GAP 6 (8-16); BLOOD UREA NITROGEN 7 MG/DL (7-18); CALCIUM 8.1 MG/DL (8.5-10.1); CHLORIDE 102 MMOL/L (99-107); CREATININE 0.87 MG/DL (0.60-1.10); GLUCOSE 105 MG/DL (70-104); POTASSIUM 3.6 MMOL/L (3.5-5.1); SODIUM 136 MMOL/L (135-145); TOTAL CARBON DIOXIDE 28.2 MMOL/L (24-32); eGFR > 90 ML/MIN
--- NOTE | 2020-08-25 06:00 | NUR ---
Patient in room [facility]. I have received report from Pat RN and had the opportunity to ask questions and assume patient care.
[2020-08-25 07:00] VITALS: BP 129/66
[2020-08-25] MEDS: K and/or MAG REPLACEMENT MC SCH ×2 (08:00→20:00)
[2020-08-25] MEDS: lactobacillus rhamnosus 10,000 MMU CELLS/CAPSULE PO SCH ×2 (08:04→20:20)
[2020-08-25] MEDS: iron sucrose complex injection 200 MG in normal saline 100ml IV soln 90 ML IV SCH (08:04)
[2020-08-25] MEDS: amox tr/potassium clavulanate 875/125mg TAB PO SCH ×2 (08:04→16:48)
[2020-08-25] MEDS: DOXYCYCLINE 100MG CAPSULE PO SCH ×2 (08:04→16:48)
--- NOTE | 2020-08-25 14:41 | NUR ---
Initial: Pt admit DX R arm cellulitis possible myositis; hx homeless, hepatitis C, and polysubstance abuse per EMR. S/p R forearm I&D w/ wound vac placed as well as I&D of 20 abscess sites on arm, leg, and torso per infection control MD note. PO 100% avg regular diet; double proteins TIDWM added for additional needs and dietary notified. [facility] 08/23. No nutrition concerns at this time. Will continue to monitor. Rec: 1. continue regular diet; double proteins TIDWM 2. routine bowel care 3. wt per rx Addendum: 08/25/20 at [address] Amended: Links added.
--- NOTE | 2020-08-25 18:00 | NUR ---
Patient in room [facility]. I have received report from Sherri SOUZA and had the opportunity to ask questions and assume patient care.
--- NOTE | 2020-08-25 18:24 | NUR ---
Problems reprioritized. Patient report given, questions answered & plan of care reviewed with Ya SOUZA.
[2020-08-25 20:00] VITALS: BP 104/52
[2020-08-25] MEDS: methadone 10mg tablet PO SCH (20:21)
[2020-08-26] VITALS: BP 110/54
[2020-08-26] MEDS: HYDROcodone/acetaminophen 10/325mg tab PO PRN ×3 (00:19→13:30)
[2020-08-26] MEDS: normal saline 1000ml 1,000 ML IV SCH (06:00)
--- NOTE | 2020-08-26 06:47 | NUR ---
Problems reprioritized. Patient report given, questions answered & plan of care reviewed with Fannie SOUZA.
[2020-08-26] MEDS: lactobacillus rhamnosus 10,000 MMU CELLS/CAPSULE PO SCH (07:42)
[2020-08-26] MEDS: amox tr/potassium clavulanate 875/125mg TAB PO SCH (07:42)
[2020-08-26] MEDS: DOXYCYCLINE 100MG CAPSULE PO SCH (07:42)
[2020-08-26 08:00] VITALS: BP 110/65
[2020-08-26] MEDS: K and/or MAG REPLACEMENT MC SCH (08:00)
[2020-08-26] MEDS: iron sucrose complex injection 200 MG in normal saline 100ml IV soln 90 ML IV SCH (09:27)
[2020-08-26 11:00] VITALS: BP 94/58
[2020-08-26] MEDS ORDERED: AMOX-580 PO (12:20)
--- NOTE | 2020-08-26 15:00 | NUR ---
Patient discharge instructions reviewed with patient and patient verbalized understanding. Patient was instructed on how to do dressing changes and watched as I did them. Patient was sent home with supplies to do dressing changes and confirmed he has a wound care appointment tomorrow 08/27 at 10am her at wound clinic and what supplies he needs to bring to appointment. 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 Patients Midline Dc'd cannula intact and PIV dc'd cannula intact. Patient states he has all belongings. Patient taken to girlfriend in [facility] for transportation home.
== END 2020-08-26 16:45 | disposition home or self-care (01) | DRG 197 ==
LOC: ER 01:29 → ED HOLD 04:24 → SUR 3N 05:15
PROVIDERS: ADMIT Internal Medicine; ATTEND Family Medicine
PROC: 0JBG0ZZ Excision of Right Lower Arm Subcutaneous Tissue and Fascia, Open Approach (ICD-10-PCS; 2020-08-20)
PROC: BP2T1ZZ Computerized Tomography (CT Scan) of Right Upper Extremity using Low Osmolar Contrast (ICD-10-PCS; principal; 2020-08-20 18:25)
PROC: 0H9EXZZ Drainage of Left Lower Arm Skin, External Approach (ICD-10-PCS; 2020-08-23)
PROC: 0H9KXZZ Drainage of Right Lower Leg Skin, External Approach (ICD-10-PCS; 2020-08-23)
PROC: 0H9LXZZ Drainage of Left Lower Leg Skin, External Approach (ICD-10-PCS; 2020-08-23)
PROC: 0H9DXZZ Drainage of Right Lower Arm Skin, External Approach (ICD-10-PCS; 2020-08-23)
DX: I96 Gangrene, not elsewhere classified (principal); L03.113 Cellulitis of right upper limb; D50.9 Iron deficiency anemia, unspecified; F12.90 Cannabis use, unspecified, uncomplicated; F19.10 Other psychoactive substance abuse, uncomplicated; B95.61 Methicillin susceptible Staphylococcus aureus infection as the cause of diseases classified elsewhere; L02.413 Cutaneous abscess of right upper limb; D63.8 Anemia in other chronic diseases classified elsewhere; L02.416 Cutaneous abscess of left lower limb; L02.414 Cutaneous abscess of left upper limb; L02.415 Cutaneous abscess of right lower limb; B18.2 Chronic viral hepatitis C; J45.909 Unspecified asthma, uncomplicated; Z59.0 Homelessness; Z88.8 Allergy status to other drugs, medicaments and biological substances; Z79.899 Other long term (current) drug therapy; Z71.51 Drug abuse counseling and surveillance of drug abuser
CPT/HCPCS: 36415; 71045; 73201; 76937; 80048; 80053; 80202; 81001; 82550; 82948; 83540; 83550; 83605; 83735; 83880; 84145; 85025; 86703; 87040; 87070; 87075; 87077; 87081; 87088; 87186; 93005; 96365; 99285; A4618; A6253; A6266; A6407; A6446; A6449; A6550; A7000; G0378; J1756; J2001; J2175; J2250; J2270; J2405; J2543; J2704; J2710; J3010; J3370; J3490; J7030; Q9967

== ENCOUNTER 2020-08-27 10:45 | Day surgery (SDC) | payer MEDICAID ==
[~2020-08-27 10:45] MED LIST changes: +AMOX-580 PO; -BACDS PO; -CEPH250T PO; -CLIN-97 PO; -DEXA4TAB68 PO; -IBUP-1984 PO; +METH10SO PO; -OXYC-658 PO
[2020-08-27] MEDS ORDERED: LIDOcaine 2% 5ml jelly ONE (13:18)
== END 2020-08-27 15:50 | disposition home or self-care (01) ==
LOC: WOUND CARE 10:45
PROVIDERS: ATTEND Nurse Practitioner
DX: L02.413 Cutaneous abscess of right upper limb (principal); L02.211 Cutaneous abscess of abdominal wall; L02.415 Cutaneous abscess of right lower limb; L02.219 Cutaneous abscess of trunk, unspecified; L02.416 Cutaneous abscess of left lower limb; I96 Gangrene, not elsewhere classified; B18.2 Chronic viral hepatitis C; B95.61 Methicillin susceptible Staphylococcus aureus infection as the cause of diseases classified elsewhere; M79.89 Other specified soft tissue disorders; J45.909 Unspecified asthma, uncomplicated; F11.90 Opioid use, unspecified, uncomplicated; F15.90 Other stimulant use, unspecified, uncomplicated; F19.10 Other psychoactive substance abuse, uncomplicated; F12.90 Cannabis use, unspecified, uncomplicated; Z86.14 Personal history of Methicillin resistant Staphylococcus aureus infection; Z90.89 Acquired absence of other organs; Z79.899 Other long term (current) drug therapy; Z79.2 Long term (current) use of antibiotics; Z98.890 Other specified postprocedural states; Z86.19 Personal history of other infectious and parasitic diseases
CPT/HCPCS: 97597; 97598